=== PATIENT | female | born 1985 | race Hispanic/Latino ===

== ENCOUNTER 2024-03-30 16:18 | Emergency (ER) | payer OTHER ==
[~2024-03-30] VITALS: Ht 149.9 cm; Wt 59.0 kg
[2024-03-30 17:11] LABS: BASOPHILS # (AUTO) 0.02 K/uL (0.00-0.20); BASOPHILS % (AUTO) 0.2 % (0.0-5.0); EOSINOPHILS # (AUTO) 0.06 K/uL (0.00-0.70); EOSINOPHILS % (AUTO) 0.7 % (0.0-8.0); HEMATOCRIT 37.6 % (36-48); IMMATURE GRANULOCYTE ABSOLUTE 0.02 K/uL (0-1); LYMPHOCYTES # (AUTO) 2.6 K/uL (1.0-4.8); LYMPHOCYTES % (AUTO) 28.9 % (21.0-51.0); MEAN CORPUSCULAR HEMOGLOBIN 29.6 pg (27.0-33.0); MEAN CORPUSCULAR HGB CONC 34.3 g/dL (32.0-36.0); MEAN CORPUSCULAR VOLUME 86.2 fL (79-99); MONOCYTES # (AUTO) 0.5 K/uL (0.1-1.0); MONOCYTES % (AUTO) 5.4 % (3.0-13.0); NEUTROPHILS # (AUTO) 5.8 K/uL (1.8-7.7); NEUTROPHILS % (AUTO) 64.6 % (40.0-77.0); PLATELET COUNT (AUTO) 265 K/uL (130-400); RED BLOOD CELL COUNT(AUTO) 4.36 MIL/uL (4.00-5.50); RED CELL DISTRIBUTION WIDTH 12.4 % (11.0-15.5); WHITE BLOOD COUNT (AUTO) 8.9 K/uL (4.8-10.8)
[2024-03-30 17:19] LABS: CREATININE 0.7 mg/dL (0.5-1.0); POTASSIUM 3.9 mmol/L (3.5-5.1)
[2024-03-30 17:29] LABS: APPEARANCE,URINE CLEAR (CLEAR); BILIRUBIN,URINE NEGATIVE (NEGATIVE); COLOR,URINE YELLOW (YELLOW); GLUCOSE, URINE (UA) 70 mg/dL (NEGATIVE); KETONES,URINE 5 mg/dL (NEGATIVE); LEUKOCYTE ESTERASE ,URINE 25 Leu/uL (NEGATIVE); NITRATE,URINE NEGATIVE (NEGATIVE); OCCULT BLOOD,URINE NEGATIVE (NEGATIVE); PROTEIN,URINE 20 mg/dL (NEGATIVE); UROBILINOGEN,URINE 0.2 mg/dL (0.2-1.0)
[2024-03-30 17:32] LABS: ADD UA MICROSCOPIC YES
[2024-03-30 17:33] LABS: BACTERIA,URINE RARE /HPF (None Seen); MUCUS,URINE RARE LPF (None Seen); SQUAMOUS EPITHELIAL CELL,UR RARE /HPF (0-2)
[2024-03-30] MEDS: ketOROlac 15MG/ML VIAL (15MG/ML) IV ONE (18:00)
[2024-03-30] MEDS: morPHINE 2 MG SYG IVP ONE (18:56)
[2024-03-30] MEDS: acetaMINOPHEN 325 MG TAB PO ONE (19:23)
[2024-03-30] MEDS: ketOROlac 15MG/ML VIAL (15MG/ML) IM ONE (19:23)
[2024-03-30] MEDS ORDERED: BACTRIM 800MG/160MG 10ML VIAL 0 MG in 0.9%NACL 100ML 100 ML IV SCH (20:00)
[2024-03-30] MEDS ORDERED: SULF1TAB42 PO (20:00)
[2024-03-30 20:32] VITALS: BP 133/78; PULSE 91; RESP 18; TEMP 98.6; O2SAT 99
== END 2024-03-30 20:33 | disposition home or self-care (01) ==
LOC: EDH 16:18
DX: N39.0 Urinary tract infection, site not specified (principal); F41.9 Anxiety disorder, unspecified; Z90.49 Acquired absence of other specified parts of digestive tract
CPT/HCPCS: 99285; 74176; 96374; 76857; 80048; 84703; 83690; 85025; 81001; 36415; 96372; J2270; J1885 ×2